=== PATIENT | female | born 1975 | race Caucasian/White ===

== ENCOUNTER 2017-12-06 16:21 | Emergency (ER) | payer OTHER ==
[~2017-12-06] VITALS: Ht 162.6 cm; Wt 83.9 kg
[~2017-12-06 16:21] MED LIST: CEPH500 PO; DOXY100 PO; HYDACE5 PO; Keflex500 MG PO; Ultram50 MG PO
[2017-12-06] MEDS ORDERED: Norco 5-325 Ta1 EACH PO (16:57)
== END 2017-12-06 17:23 | disposition home or self-care (01) ==
LOC: ER 16:21
DX: T23.262A Burn of second degree of back of left hand, initial encounter (principal); Z88.2 Allergy status to sulfonamides; Z79.891 Long term (current) use of opiate analgesic; F17.200 Nicotine dependence, unspecified, uncomplicated; Z90.49 Acquired absence of other specified parts of digestive tract; X15.0XXA Contact with hot stove (kitchen), initial encounter
CPT/HCPCS: 16000; 99283